=== PATIENT | female | born 1990 | race African-American/Black ===

== ENCOUNTER 2016-10-07 00:33 | Emergency (ER) | payer OTHER ==
[~2016-10-07] VITALS: Ht 162.6 cm; Wt 66.2 kg
[~2016-10-07 00:33] MED LIST: BACTRIM DS TAB1 EACH PO; NAPROSYN500 MG PO; NORCO 5-325 TA1 EACH PO; PROBIOTIC1 EAC1 PO; TORADOL 10 MG T10 MG PO
[2016-10-07 00:40] VITALS: BP 106/70
== END 2016-10-07 01:27 | disposition home or self-care (01) ==
LOC: ER 00:33
DX: K08.89 Other specified disorders of teeth and supporting structures (principal); F17.210 Nicotine dependence, cigarettes, uncomplicated

== ENCOUNTER 2018-09-06 14:19 | Emergency (ER) | payer OTHER ==
[~2018-09-06] VITALS: Ht 162.6 cm; Wt 61.7 kg
[2018-09-06] MEDS ORDERED: NOHOMEMEDICATIONS (14:24)
[2018-09-06] MEDS ORDERED: NORCO 5-325 TA1 EACH PO (16:07)
[2018-09-06 16:36] VITALS: BP 107/75
== END 2018-09-06 16:37 | disposition home or self-care (01) ==
LOC: ER 14:19
DX: S46.091A Other injury of muscle(s) and tendon(s) of the rotator cuff of right shoulder, initial encounter (principal); F17.210 Nicotine dependence, cigarettes, uncomplicated; X50.1XXA Overexertion from prolonged static or awkward postures, initial encounter; Y92.89 Other specified places as the place of occurrence of the external cause; Y93.67 Activity, basketball; Y99.8 Other external cause status

== ENCOUNTER 2018-10-07 12:39 | Emergency (ER) | payer OTHER ==
[~2018-10-07] VITALS: Ht 162.6 cm; Wt 61.7 kg
[~2018-10-07 12:39] MED LIST changes: +NOHOMEMEDICATIONS
[2018-10-07] MEDS ORDERED: IBUPROFEN 600600 M1 PO ×2 (12:58→13:32)
[2018-10-07] MEDS ORDERED: TYLENOL EXTRA500 MG PO (12:58)
[2018-10-07] MEDS ORDERED: PENICILLIN V P500 MG PO (13:32)
[2018-10-07] MEDS ORDERED: ULTRAM 50MG TAB50 MG PO (13:32)
[2018-10-07 13:57] VITALS: BP 121/89
== END 2018-10-07 13:57 | disposition home or self-care (01) ==
LOC: ER 12:39
DX: K05.10 Chronic gingivitis, plaque induced (principal); F17.210 Nicotine dependence, cigarettes, uncomplicated

== ENCOUNTER 2020-06-04 10:14 | Emergency (ER) | payer OTHER ==
[~2020-06-04] VITALS: Ht 162.6 cm; Wt 65.8 kg
[~2020-06-04 10:14] MED LIST changes: +IBUPROFEN 600600 M1 PO; +PENICILLIN V P500 MG PO; +TYLENOL EXTRA500 MG PO; +ULTRAM 50MG TAB50 MG PO
[2020-06-04 10:30] VITALS: BP 111/67
--- NOTE | 2020-06-04 14:07 | EKG ---
[address] [address] ELECTROCARDIOGRAM REPORT Name: LINDA DUQUE Room #: DEP [facility] [place]#: [id number] Admission: 06/04/20 Attend Phys: Discharge: 06/04/20 Date of : 89 Report #: [id number] [facility] ED Test Date: 2020-06-04 Test Time: 10:20:04 Pat Name: LINDA ESPINOZA Department: Room: Gender: F Representative Phlebotomy Services: jchailillie : 1990 Requested By: Gonzalez Thomas Order Number: [id number] MD: Parker Trevizo Measurements Intervals [place] Rate: 80 P: 59 [place]: 168 QRS: 30 QRSD: 71 T: 34 QT: 349 QTc: 403 Interpretive Statements Sinus rhythm No previous ECG available for comparison Electronically Signed On 06-04-2020 14:06:51 REGISTERED NURSE CARDIAC by Parker Trevizo [email or web address] <ELECTRONICALLY SIGNED> By: Parker Trevizo MD, [facility] 06/04/20 1406 1020 1020 Parker Trevizo MD, FACC /EPI
== END 2020-06-04 11:09 | disposition home or self-care (01) ==
LOC: ER 10:14
DX: G56.01 Carpal tunnel syndrome, right upper limb (principal); F17.210 Nicotine dependence, cigarettes, uncomplicated; F12.90 Cannabis use, unspecified, uncomplicated; Z98.890 Other specified postprocedural states